=== PATIENT | male | born 1960 | race Caucasian/White ===

== ENCOUNTER → 2017-12-09 | Outpatient (CLI) | payer OTHER | END | disposition home or self-care (01) | LOC: ECHO 13:46 | DX: I48.0 Paroxysmal atrial fibrillation (principal) | CPT/HCPCS: 93306 ==

== ENCOUNTER → 2020-03-27 | Outpatient (CLI) | payer OTHER ==
--- NOTE | 2020-03-27 12:09 | KCIC ---
EXAM: Right foot, 3 views; right ankle, 3 views. HISTORY: Pain. COMPARISON: None. FINDINGS: 3 views of the right foot and ankle are obtained. There is a tiny ossific excrescence along the inferior medial malleolus. There is no fracture, dislocation or subluxation. There is no osteochondral lesion. There is a tiny chronic fragmented osteophyte along the posterior tibiotalar joint. There is enthesopathy at the Achilles tendon insertion. 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 There is hyperflexion and abduction at the fourth distal interphalangeal joint with associated joint space narrowing and bony remodeling. There is slight widening of the fifth proximal interphalangeal joint. IMPRESSION: 1. No acute osseous finding. 2. Ankylosis of the right second, third and fourth proximal interphalangeal joints and joint space widening and bony remodeling involving the fourth distal interphalangeal joint, and to a lesser extent, the fifth proximal interphalangeal joint. Electronically signed by: Zakiya Mims MD (03/27/2020 12:06 PM) [id number]
== END ==
LOC: KCIC 11:16
PROVIDERS: ATTEND Family Medicine
DX: M24.671 Ankylosis, right ankle (principal); M25.571 Pain in right ankle and joints of right foot
CPT/HCPCS: 73610; 73630

== ENCOUNTER → 2020-05-04 | Outpatient (CLI) | payer OTHER ==
[~2020-05-04] MED LIST: AMIO200T6 PO; ASPI-630 PO; DILT120C99 PO; HYDR-3164 PO; LISI-130 PO; MAGN250T10 PO; METO50TA6 PO; MULT-245 PO; NAPR500T8 PO; OMEP40CA45 PO; SILD20TA4 PO
== END ==
LOC: LAB 09:57
PROVIDERS: ATTEND Surgery
DX: Z01.812 Encounter for preprocedural laboratory examination (principal); R22.1 Localized swelling, mass and lump, neck; Z20.828 Contact with and (suspected) exposure to other viral communicable diseases
CPT/HCPCS: U0003

== ENCOUNTER 2020-05-08 06:05 | Day surgery (SDC) | payer OTHER ==
[~2020-05-08] VITALS: Ht 182.9 cm; Wt 127.5 kg
[~2020-05-08 06:05] MED LIST changes: -HYDR-3164 PO; +ceFAZolin SODIUM 3 GM in IV DEXTROSE 5% 100ML 100 ML IV PRN
[2020-05-08] MEDS ORDERED: LIDOCAINE 1% PF 2 ML VIAL. ID PRN ×2 (07:00)
[2020-05-08] MEDS ORDERED: HYDROmorphone 2 MG/ML VIAL IV PRN ×2 (07:00)
[2020-05-08] MEDS ORDERED: fentaNYL PF VIAL 100 MCG/2 ML VIAL IV PRN ×3 (07:00)
[2020-05-08] MEDS ORDERED: PROCHLORPERAZINE 10 MG/2 ML VIAL. IV PRN ×2 (07:00)
[2020-05-08] MEDS ORDERED: IV RINGERS,LACTATED 1000ML 1,000 ML IV SCH ×2 (07:00)
[2020-05-08] MEDS ORDERED: MORPHINE SULFATE 2 MG/ML VIAL. IV PRN ×2 (07:00)
[2020-05-08] MEDS ORDERED: ONDANSETRON PF 4 MG/2 ML VIAL. IV PRN ×2 (07:00)
[2020-05-08] MEDS ORDERED: LIDOCAINE 1%/EPI 1:100,000 20 ML VIAL. ONE (07:11)
[2020-05-08] MEDS ORDERED: SUCCINYLCHOLINE 200 MG/10 ML VIAL. ONE (07:37)
[2020-05-08] MEDS ORDERED: ROCURONIUM 50 MG/5 ML VIAL. ONE (07:37)
[2020-05-08] MEDS ORDERED: DESFLURANE 31 TO 60 MINUTES IH ONE (07:58)
[2020-05-08] MEDS ORDERED: ONDANSETRON PF 4 MG/2 ML VIAL. ONE (07:58)
[2020-05-08] MEDS ORDERED: DEXAMETHASONE SOD PHOS 4 MG/ML VIAL ONE (07:58)
[2020-05-08] MEDS ORDERED: GLYCOPYRROLATE 1 MG/5 ML VIAL. ONE (08:12)
[2020-05-08] MEDS ORDERED: NEOSTIGMINE METHYLSULFATE 5 MG/5 ML SYRINGE. ONE (08:12)
--- NOTE | 2020-05-08 08:45 | PDOC4 ---
Operative Note Operative Note Operative Note: Preoperative Diagnosis: Posterior neck mass Postoperative Diagnosis: Same Procedure: Excision of posterior neck mass Surgeon: Arnold Manager Ship: Marilu BATES Anesthesia: General EBL: 10 mL Specimen: Posterior neck mass 5 x 4 cm to pathology Drains: None Complications: None Indication: The patient is a 59-year-old male who was referred due to a symptomatic posterior neck mass. He requests excision The risks of surgery were discussed which include bleeding, infection, pain, recurrence, potential need for additional surgery procedure. He understands and would like to proceed. Description: The patient was taken to the operating room and placed supine on the operating table. General anesthesia was performed. He was then rolled with his left side up exposing the left posterior neck. The posterior neck was prepped with Betadine and draped in a standard surgical manner. An incision was made overlying the mass with a scalpel. Cautery dissection was carried out into the subcutaneous tissue. The mass was identified and comprised of lobulated adipose tissue consistent with a lipoma. The mass was mobilized from surrounding tissues and fully excised. The mass measured 5 x 4 cm and was sent to pathology for evaluation. Hemostasis was obtained using cautery. The subcutaneous tissue was closed with 3-0 Vicryl. The skin was approximated with 4-0 Monocryl. A Steri-Strip and dressing were applied. The patient tolerated the procedure well and was sent to the recovery room in stable condition. At the end of the case all counts were correct. TROY LAZCANO MD May 08, 2020 08:45
--- NOTE | 2020-05-08 08:47 | DISCH ---
DISCHARGE INSTRUCTIONS Condition on Discharge Condition on Discharge: Stable Activity After Discharge Activity Instructions for Disc: Activity as tolerated Diet after Discharge Diet after Discharge: Regular Wound Incision Care Wound/Incision Care: Other, see below (keep dressing clean and dry X 72 hours, may then remove and shower) Follow-Up Follow up with: Dr Lazcano in 2 weeks, call for appointment [phone] TROY LAZCANO MD May 08, 2020 08:46
[2020-05-08] MEDS ORDERED: HYDR-3164 PO (09:11)
[2020-05-08] MEDS ORDERED: fentaNYL PF VIAL 100 MCG/2 ML VIAL ONE (09:39)
[2020-05-08] MEDS: fentaNYL PF VIAL 100 MCG/2 ML VIAL IV PRN ×2 (09:47→10:18)
[2020-05-08] MEDS ORDERED: HYDROcodone/APAP 5/325MG 1 TAB TABLET PO PRN ×2 (10:00)
[2020-05-08 10:50] VITALS: BP 149/68
--- NOTE | 2020-05-10 17:18 | PATHOLOGY ---
[facility] Accession Number: [id number] . 01 Material submitted: . neck - NECK MASS . 02 Diagnosis: Fibroadipose tissue, neck mass: - Lipoma. ([facility] 05/10/2020) [facility] 05/10/2020 1225 Local . 02 Electronically signed: . Reji Whitlock MD, Pathologist NPI- [id number] . 01 Gross description: . The specimen is received in formalin, labeled "Ayush Sousa, neck mass". Received is a segment of shaggy yellow-jones lobulated tissue measuring 5.4 x 5.2 x 3.1 cm in aggregate dimensions. Sectioning reveals yellow-jones, lobulated cut surfaces throughout with no grossly distinct nodules or lesions. The specimen is submitted representatively in cassettes A1 and A2. ([facility]; 05/09/2020) [facility] 05/09/2020 1303 Local . 02 Pathologist provided ICD-10: D17.0 . 02 CPT . 453038 Specimen Comment: A courtesy copy of this report has been sent to [phone], [phone] Specimen Comment: [id number] Specimen Comment: Report sent to / DR JONES Performed at: 01 [facility] [address], [place], [place] [id number] MD Milton Gonzalez MD Phone: [phone] Performed at: 02 [facility] [address] [place], [place] [id number] MD Reji Whitlock MD Phone: [phone]
== END 2020-05-08 11:00 | disposition home or self-care (01) ==
LOC: SURG 06:05
PROVIDERS: ATTEND Surgery
DX: R22.1 Localized swelling, mass and lump, neck (principal); I10 Essential (primary) hypertension; K21.9 Gastro-esophageal reflux disease without esophagitis; M19.90 Unspecified osteoarthritis, unspecified site; I48.91 Unspecified atrial fibrillation; G47.30 Sleep apnea, unspecified; Z79.82 Long term (current) use of aspirin; Z79.899 Other long term (current) drug therapy; Z87.891 Personal history of nicotine dependence; Z98.890 Other specified postprocedural states; Z72.89 Other problems related to lifestyle
CPT/HCPCS: 21552; A4461; J0330; J1100; J2405; J2710; J3010; J3490; 88304